=== PATIENT | male | born 1985 | race Caucasian/White ===

== ENCOUNTER 2017-12-07 11:54 | Emergency (ER) | payer MEDICAID, OTHER ==
[~2017-12-07] VITALS: Ht 180.3 cm; Wt 99.8 kg
[2017-12-07] MEDS ORDERED: HYDROcodone-ACET 10/325MG TAB PO ONE (14:30)
[2017-12-07] MEDS ORDERED: PHENYLEPHRINE INJ 10 MG in SODIUM CHL 0.9% 19 ML IR ONE (14:30)
[2017-12-07 14:35] VITALS: BP 141/81
== END 2017-12-07 15:43 | disposition home or self-care (01) ==
LOC: ER 11:54
DX: N48.30 Priapism, unspecified (principal); F17.210 Nicotine dependence, cigarettes, uncomplicated
CPT/HCPCS: 96372; 99283; J2370